=== PATIENT | female | born 1985 | race Caucasian/White ===

== ENCOUNTER → 2020-04-23 | Outpatient (CLI) | payer OTHER ==
[2016-08-14 16:30] VITALS: BP 131/82
[~2020-04-23] MED LIST: HYDR-2678 PO; IBUP-1060 PO
--- NOTE | 2020-04-23 16:33 | RAD ---
EXAM: Pelvic sonogram. HISTORY: Excessive menstruation. TECHNIQUE: Sonographic imaging of the pelvis was performed. COMPARISON: None. FINDINGS: The uterus measures 8.5 x 6.2 x 2.9 cm. There is a bicornuate uterine configuration. The endometrial stripe measures 4.3 mm in maximum thickness. The ovaries are normal in size and demonstrate normal blood flow. There is no pelvic free fluid. IMPRESSION: Bicornuate uterus. Otherwise, unremarkable pelvic sonogram. Electronically signed by: Jacinta Spencer MD (04/23/2020 4:30 PM) [id number]
== END | disposition home or self-care (01) ==
LOC: US 14:18
PROVIDERS: ATTEND Obstetrics & Gynecology
DX: N92.0 Excessive and frequent menstruation with regular cycle (principal)
CPT/HCPCS: 76856

== ENCOUNTER → 2020-06-14 | Outpatient (CLI) | payer OTHER ==
[2016-08-14 16:30] VITALS: BP 131/82
[~2020-06-14] MED LIST changes: +DOCU-109 PO; +GABA300C18 PO; +PROM25TA10 PO
== END | disposition home or self-care (01) ==
LOC: LAB 14:34
PROVIDERS: ATTEND Obstetrics & Gynecology
DX: Z01.818 Encounter for other preprocedural examination (principal); Z11.59 Encounter for screening for other viral diseases
CPT/HCPCS: U0003-CS

== ENCOUNTER 2020-06-17 06:13 | Observation (INO) | payer OTHER ==
[2020-06-17] VITALS (8 sets, daily range): BP systolic 107–118; BP diastolic 67–81
[~2020-06-17] VITALS: Ht 170.2 cm; Wt 66.2 kg
[~2020-06-17 06:13] MED LIST changes: -DOCU-109 PO; -GABA300C18 PO; -PROM25TA10 PO; +ceFAZolin SODIUM IV Push 1 GM VIAL. IVP PRN
[2020-06-17] MEDS ORDERED: ONDANSETRON PF 4 MG/2 ML VIAL. ONE (06:43)
[2020-06-17] MEDS ORDERED: PROPOFOL 10 MG/ML (20ML) VIAL. IV ONE (06:43)
[2020-06-17] MEDS ORDERED: LIDOCAINE 2% PF 5 ML VIAL. ONE (06:43)
[2020-06-17] MEDS ORDERED: DEXAMETHASONE SOD PHOS 4 MG/ML VIAL ONE (06:43)
[2020-06-17] MEDS ORDERED: fentaNYL PF VIAL 100 MCG/2 ML VIAL ONE ×2 (06:44→11:02)
[2020-06-17] MEDS ORDERED: MIDAZOLAM HCL/PF 2 MG/2 ML VIAL. ONE (06:44)
[2020-06-17] MEDS ORDERED: ROCURONIUM 50 MG/5 ML VIAL. ONE ×2 (06:44→09:37)
[2020-06-17] MEDS: IV RINGERS,LACTATED 1000ML 1,000 ML IV SCH ×2 (06:49→10:21)
[2020-06-17] MEDS ORDERED: fentaNYL PF VIAL 100 MCG/2 ML VIAL IV PRN (07:00)
[2020-06-17] MEDS ORDERED: HYDROmorphone 2 MG/ML VIAL IV PRN (07:00)
[2020-06-17] MEDS ORDERED: ONDANSETRON PF 4 MG/2 ML VIAL. IV PRN ×2 (07:00→10:15)
[2020-06-17 07:11] LABS: BASO % 1 % (0-3); EOS # 0.1 x10^3/uL (0.0-0.7); EOS % 1 % (0-3); HEMATOCRIT 39.2 % (36.0-47.0); HEMOGLOBIN 13.5 g/dL (12.0-15.5); LYMPH # 1.8 x10^3/uL (1.0-4.8); LYMPH % 35 % (24-48); MEAN CORPUSCULAR HEMOGLOBIN 32 pg (25-35); MEAN CORPUSCULAR HGB CONC 35 g/dL (31-37); MEAN CORPUSCULAR VOLUME 93 fL (79-100); MONO # 0.4 x10^3/uL (0.0-1.1); MONO % 7 % (0-9); NEUT # 2.9 x10^3/uL (1.8-7.7); NEUT % 56 % (31-73); PLATELET COUNT 210 x10^3/uL (140-400); RED BLOOD COUNT 4.21 x10^6/uL (3.50-5.40); RED CELL DISTRIBUTION WIDTH 12.5 % (11.5-14.5); WHITE BLOOD COUNT 5.2 x10^3/uL (4.0-11.0)
[2020-06-17] MEDS ORDERED: ESTROGENS, CONJ VAGINAL CREAM 30GM TUBE. ONE (07:11)
[2020-06-17] MEDS ORDERED: BUPIVACAINE-EPI 0.25%-1:200000 MPF 30 ML VIAL. ONE (07:11)
[2020-06-17] MEDS ORDERED: LIDOCAINE 1%/EPI 1:100,000 20 ML VIAL. ONE (07:11)
[2020-06-17] MEDS ORDERED: INDIGOTINDISULFONATE SODIUM 40 MG/5 ML AMPUL. ONE (07:11)
[2020-06-17] MEDS ORDERED: SURGICEL HEMOSTAT 4X8 EACH. ONE (07:11)
[2020-06-17] MEDS ORDERED: NEOSTIGMINE METHYLSULFATE 5 MG/5 ML SYRINGE. ONE (09:04)
[2020-06-17] MEDS ORDERED: GLYCOPYRROLATE 1 MG/5 ML VIAL. ONE (09:04)
--- NOTE | 2020-06-17 10:09 | PDOC ---
BRIEF OPERATIVE NOTE Date: Jun 17, 2020 Pre-Op Diagnosis 1. Menorrhagia 2. Dysmenorrhea 3. Uterine Anomaly Post-Op Diagnosis Same + Vaginal Septum ( vertical) Procedure Performed 1. LAVH 2. Partial Vaginectomy Surgeon Dr. Patton Cover Assembler Surgery Scheduling Coordinator: Anil Anesthesia Type: General Blood Loss 75 ml Specimens Obtained freddy. fallopian tubes, uterus bicornuate and both cervi Findings nml fallopian tubes and ovaries freddy., bicornuate uterus, double cervix with vaginal septum (vertical) Complications none Operative Note see dictation MALICK PATTON Jr, MD Jun 17, 2020 10:09
[2020-06-17] MEDS ORDERED: diphenhydrAMINE 50 MG/ML VIAL IV PRN (10:15)
[2020-06-17] MEDS ORDERED: PROCHLORPERAZINE 10 MG/2 ML VIAL. IV PRN (10:15)
[2020-06-17] MEDS ORDERED: SIMETHICONE 80 MG TAB.CHEW PO PRN (10:15)
[2020-06-17] MEDS ORDERED: CALCIUM CARBONATE 500 MG TAB.CHEW PO PRN (10:15)
[2020-06-17] MEDS ORDERED: ZOLPIDEM 5 MG TABLET. PO PRN (10:15)
[2020-06-17] MEDS ORDERED: diphenhydrAMINE HCL 25 MG CAPSULE PO PRN (10:15)
[2020-06-17] MEDS ORDERED: DEXTROSE 50% 25 GM / 50ML DISP.SYRIN. IV PRN (10:15)
[2020-06-17] MEDS ORDERED: KETOROLAC 30 MG/ML VIAL. IV PRN (10:15)
[2020-06-17] MEDS ORDERED: 0.9 % SODIUM CHLORIDE 10 ML DISP.SYRIN. IV PRN (10:15)
[2020-06-17] MEDS ORDERED: PROCHLORPERAZINE 10 MG/2 ML VIAL. ONE (10:29)
[2020-06-17] MEDS ORDERED: MORPHINE SULFATE 2 MG/ML VIAL. ONE (10:30)
[2020-06-17] MEDS: PROCHLORPERAZINE 10 MG/2 ML VIAL. IV PRN ×2 (10:42→15:01)
[2020-06-17] MEDS: MORPHINE SULFATE 2 MG/ML VIAL. IV PRN ×2 (10:43→10:54)
[2020-06-17] MEDS: fentaNYL PF VIAL 100 MCG/2 ML VIAL IV PRN ×2 (11:06→11:36)
--- NOTE | 2020-06-17 11:09 | OP ---
DATE OF SURGERY: 06/17/2020 PREOPERATIVE DIAGNOSES: 1. Menorrhagia. 2. Dysmenorrhea. 3. Uterine anomaly. POSTOPERATIVE DIAGNOSES: 1. Menorrhagia. 2. Dysmenorrhea. 3. Uterine anomaly. 4. Vaginal septum vertical. PROCEDURE: 1. LAVH. 2. Partial vaginectomy. SURGEON: Malick Patton MD HAT BRIM CURLER: Flako. ANESTHESIA: GETA. ESTIMATED BLOOD LOSS: 75 mL. COMPLICATIONS: None. FINDINGS: Normal fallopian tubes and ovaries bilaterally, bicornuate uterus, double cervix with vaginal septum vertical direction. SUMMARY: A 34-year-old female with long history of menorrhagia, dysmenorrhea as well as have a uterine anomaly in which medical treatment was ineffective requiring hysterectomy. The patient was counseled on risks, benefits and expectations of LAVH and voiced clear understanding to proceed. DESCRIPTION OF PROCEDURE: The patient was taken to surgery suite and placed in dorsal lithotomy position. She was prepped with Betadine solution and draped in sterile fashion. Abdominal prep was ChloraPrep. After adequate anesthesia and prep and draping, weighted speculum and curved Randy placed vaginally. Anterior lip of the one cervix was grasped with single tooth tenaculum. Valtchev uterine manipulator was then placed. Weighted speculum and curved Saint James were removed. Attention was now placed on abdomen. Small transverse skin incision was made with the scalpel just below the umbilicus. Veress needle was then placed through the infraumbilical incision site. The abdomen was allowed to insufflate up to 1-1/2 liters CO2 gas. The Veress needle was then removed, 5 mm trocar was placed. Scope was positioned. Uterus was visualized, mildly enlarged, which demonstrated 3 round ligaments. There were two fallopian tubes and two ovaries. There were a few adhesions in the lower uterine segment as well. Two additional incisions made in the left lower quadrant with a scalpel in which 5 mm trocars were placed. With aid of EnSeal device, the accessory round ligament that was coming off of the more fundal portion of the uterus was fulgurated and dissected from the abdominal wall. The right round ligament was then coagulated and dissected. The right fallopian tube was coagulated and dissected away from the pelvic sidewall. The right utero-ovarian pedicle was coagulated and dissected down to the adhesions in the lower uterine segment, which were dissected meticulously with blunt dissection and the EnSeal device. Partial bladder flap was created. The left round ligament was coagulated and dissected. The left fallopian tube was coagulated and dissected away from the left pelvic sidewall and a portion of that specimen was removed through the trocar. The left broad ligament was coagulated and dissected down to and including the left uterine artery. We further dissected the bladder off of the lower uterine segment as well as the adhesions using blunt dissection and sharp dissection with the EnSeal device. Suction irrigation was utilized to verify good hemostasis. The right uterine artery was coagulated and cut using the EnSeal device. We then proceeded vaginally. Weighted speculum and curved Saint James placed vaginally. Single tooth tenaculum and the Valtchev manipulator were removed. Russell clamps were placed on the larger of the 2 cervices. There was a vaginal septum that was vertically extended at the 3/4 of the length of the vaginal vault. This was clamped near the anterior vaginal wall and posterior vaginal wall curved Anam clamps and the vaginal septum was excised using curved Marquez scissors. A 2-0 Vicryl was placed on the remaining pedicles. Both cervices were visualized and clamped with Russell clamps. 1% lidocaine with epinephrine was injected around both cervices. Cautery was utilized to circumscribe the cervices. The vaginal mucosa was dissected away from the lower uterine segment using moist Ray-Rik. The parametrial tissue was clamped bilaterally with curved Anam clamps, cut and suture ligated with 2-0 Vicryl suture. The anterior and posterior cul-de-sac was entered with sharp dissection using curved Marquez scissors. Long weighted speculum was placed. The uterosacral ligaments were clamped bilaterally, cut, and suture ligated. The cardinal ligaments were then clamped bilaterally, cut, and suture ligated. Entered anterior cul-de-sac with blunt dissection. There was one additional pedicle was clamped, cut, tied with free tie of 2-0 Vicryl suture. Both cervices and the bicornuate uterus was removed along with the right fallopian tube. A modified Thakur's culdoplasty was performed incorporating the uterosacral ligaments bilaterally. Remainder of the vaginal cuff was reapproximated using 2-0 Vicryl suture in [id number] manner. Moist vaginal packing was placed. Attention was once again placed on abdomen. The scope was positioned. The abdomen was allowed to insufflate up to 1-1/2 liters CO2 gas. The pedicles were visualized and appeared all hemostatic and verified with suction irrigation. Both ovaries appeared normal. Small amount of normal saline was left in posterior cul-de-sac. The trocars were then removed under direct visualization. Abdomen was allowed to deflate as much as possible along with mechanical manipulation. The three skin incisions were reapproximated using 4-0 Vicryl suture in subcuticular manner. A 0.25% Marcaine with epinephrine was injected at each incision site. The patient tolerated the procedure well and was taken to recovery room in stable condition. Sponge and needle count correct x 3. MALICK PATTON MD DR: BUFFY/susanna JOB#: [id number] / [id number]
[2020-06-17] MEDS ORDERED: OPIUM/BELLADONNA 30/16.2MG SUPP.RECT. PR PRN (12:45)
[2020-06-17] MEDS: GABAPENTIN 300 MG CAPSULE. PO SCH ×2 (14:00→22:00)
[2020-06-17] MEDS: oxyCODONE/APAP 5/325 1 TAB TABLET PO PRN ×2 (14:58→20:38)
--- NOTE | 2020-06-17 17:00 | NUR ---
vag packing removed per Dr Patton verbal order pt removed IV accidently
[2020-06-17] MEDS ORDERED: ONDANSETRON ODT 4 MG TAB.RAPDIS. PO PRN (20:00)
--- NOTE | 2020-06-18 02:03 | NUR ---
Pt called out to RN stating she wanted pain meds. Pt is in bed vomiting. RN educated pt about PO meds and about starting IV. 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 Pt stated she will keep IV and not remove it.
[2020-06-18 06:43] LABS: BASO % 0 % (0-3); EOS % 0 % (0-3); HEMATOCRIT 27.5 % (36.0-47.0); HEMOGLOBIN 9.3 g/dL (12.0-15.5); LYMPH # 0.9 x10^3/uL (1.0-4.8); LYMPH % 6 % (24-48); MEAN CORPUSCULAR HEMOGLOBIN 31 pg (25-35); MEAN CORPUSCULAR HGB CONC 34 g/dL (31-37); MEAN CORPUSCULAR VOLUME 93 fL (79-100); MONO # 0.9 x10^3/uL (0.0-1.1); MONO % 6 % (0-9); NEUT # 12.6 x10^3/uL (1.8-7.7); NEUT % 88 % (31-73); PLATELET COUNT 208 x10^3/uL (140-400); RED BLOOD COUNT 2.97 x10^6/uL (3.50-5.40); RED CELL DISTRIBUTION WIDTH 12.5 % (11.5-14.5); WHITE BLOOD COUNT 14.4 x10^3/uL (4.0-11.0)
[2020-06-18 06:48] VITALS: BP 116/60
[2020-06-18] MEDS: GABAPENTIN 300 MG CAPSULE. PO SCH ×2 (08:30→14:00)
[2020-06-18 10:20] VITALS: BP 114/62
[2020-06-18] MEDS: oxyCODONE/APAP 5/325 1 TAB TABLET PO PRN (10:38)
[2020-06-18 10:57] LABS: % BANDS 3 % (0-9); % LYMPHS 6 % (24-48); % MONOS 4 % (0-10); % SEGS 87 % (35-66); PLT ESTIMATE ADEQUATE (ADEQUATE)
--- NOTE | 2020-06-18 13:40 | PDOC ---
SURGICAL PROGRESS NOTE DATE: 06/18/20 TIME: 13:39 Subjective Pt. feeling better and starting to tolerate soft foods. Pain controlled. Vital Signs Vital Signs Date Time Temp Pulse Resp B/P (MAP) Pulse Ox O2 Delivery O2 Flow Rate FiO2 06/18/20 06:48 98.5 60 18 116/60 (78) 99 Room Air 98.5 06/17/20 11:40 2.0 I&O Intake and Output 06/18/20 07:00 Intake Total 1650 ml Output Total 1525 ml Balance 125 ml Intake Oral 450 ml IV Total 1200 ml Output Urine Total 1375 ml Estimated Blood Loss 150 ml PATIENT HAS A ARGUETA: No General: Alert, Oriented X3, Cooperative HEENT: Atraumatic Lungs: Clear to auscultation Heart: Regular rate Abdomen: Normal bowel sounds, Soft, No tenderness, No masses Psych/Mental Status: Mental status NL Labs Laboratory Tests Test 06/17/20 06:36 06/17/20 06:40 06/18/20 05:53 White Blood Count 5.2 x10^3/uL (4.0-11.0) 14.4 x10^3/uL (4.0-11.0) Red Blood Count 4.21 x10^6/uL (3.50-5.40) 2.97 x10^6/uL (3.50-5.40) Hemoglobin 13.5 g/dL (12.0-15.5) 9.3 g/dL (12.0-15.5) Hematocrit 39.2 % (36.0-47.0) 27.5 % (36.0-47.0) Mean Corpuscular Volume 93 fL (79-100) 93 fL (79-100) Mean Corpuscular Hemoglobin 32 pg (25-35) 31 pg (25-35) Mean Corpuscular Hemoglobin Concent 35 g/dL (31-37) 34 g/dL (31-37) Red Cell Distribution Width 12.5 % (11.5-14.5) 12.5 % (11.5-14.5) Platelet Count 210 x10^3/uL (140-400) 208 x10^3/uL (140-400) Neutrophils (%) (Auto) 56 % (31-73) 88 % (31-73) Lymphocytes (%) (Auto) 35 % (24-48) 6 % (24-48) Monocytes (%) (Auto) 7 % (0-9) 6 % (0-9) Eosinophils (%) (Auto) 1 % (0-3) 0 % (0-3) Basophils (%) (Auto) 1 % (0-3) 0 % (0-3) Neutrophils # (Auto) 2.9 x10^3/uL (1.8-7.7) 12.6 x10^3/uL (1.8-7.7) Lymphocytes # (Auto) 1.8 x10^3/uL (1.0-4.8) 0.9 x10^3/uL (1.0-4.8) Monocytes # (Auto) 0.4 x10^3/uL (0.0-1.1) 0.9 x10^3/uL (0.0-1.1) Eosinophils # (Auto) 0.1 x10^3/uL (0.0-0.7) 0.0 x10^3/uL (0.0-0.7) Basophils # (Auto) 0.0 x10^3/uL (0.0-0.2) 0.0 x10^3/uL (0.0-0.2) Bedside Urine HCG, Qualitative Hcg negative (Negative) Segmented Neutrophils % 87 % (35-66) Band Neutrophils % 3 % (0-9) Lymphocytes % 6 % (24-48) Monocytes % 4 % (0-10) Platelet Estimate Adequate (ADEQUATE) Laboratory Tests Test 06/18/20 05:53 White Blood Count 14.4 x10^3/uL (4.0-11.0) Red Blood Count 2.97 x10^6/uL (3.50-5.40) Hemoglobin 9.3 g/dL (12.0-15.5) Hematocrit 27.5 % (36.0-47.0) Mean Corpuscular Volume 93 fL (79-100) Mean Corpuscular Hemoglobin 31 pg (25-35) Mean Corpuscular Hemoglobin Concent 34 g/dL (31-37) Red Cell Distribution Width 12.5 % (11.5-14.5) Platelet Count 208 x10^3/uL (140-400) Neutrophils (%) (Auto) 88 % (31-73) Lymphocytes (%) (Auto) 6 % (24-48) Monocytes (%) (Auto) 6 % (0-9) Eosinophils (%) (Auto) 0 % (0-3) Basophils (%) (Auto) 0 % (0-3) Neutrophils # (Auto) 12.6 x10^3/uL (1.8-7.7) Lymphocytes # (Auto) 0.9 x10^3/uL (1.0-4.8) Monocytes # (Auto) 0.9 x10^3/uL (0.0-1.1) Eosinophils # (Auto) 0.0 x10^3/uL (0.0-0.7) Basophils # (Auto) 0.0 x10^3/uL (0.0-0.2) Segmented Neutrophils % 87 % (35-66) Band Neutrophils % 3 % (0-9) Lymphocytes % 6 % (24-48) Monocytes % 4 % (0-10) Platelet Estimate Adequate (ADEQUATE) Assessment/Plan A: POD#1 s/p LAVH P: D/c home. Justicifation of Admission Dx: Justifications for Admission: Justification of Admission Dx: Yes MALICK GUZMÁN Jr, MD Jun 18, 2020 13:40
[2020-06-18] MEDS ORDERED: PROM25TA10 PO (13:44)
[2020-06-18] MEDS ORDERED: GABA300C18 PO (13:44)
[2020-06-18] MEDS ORDERED: IBUP-1060 PO (13:44)
[2020-06-18] MEDS ORDERED: DOCU-109 PO (13:44)
--- NOTE | 2020-06-18 13:45 | DISCH ---
DISCHARGE INSTRUCTIONS Condition on Discharge Condition on Discharge: Stable Activity After Discharge Activity Instructions for Disc: Activity as tolerated Lifting Instructions after Dis: No heavy lifting Exercise Instruction after Dis: Walk 15 min, 3 x per day Driving Instructions after Dis: No driving for 2 weeks Weight Bearing Status after Di: No restrictions Diet after Discharge Diet after Discharge: Regular Checks after Discharge Checks after discharge: Weigh Yourself Daily Contacting the [facility] after DC Call your doctor for: If your condition worsens Follow-Up Follow up with: Dr. Patton in 2 weeks. Treatment/Equipment after DC Adaptive Equipment Issued: None MALICK PATTON Jr, MD Jun 18, 2020 13:45
--- NOTE | 2020-06-18 15:08 | PATHOLOGY ---
[facility] Accession Number: [id number] . 01 Material submitted: . uterus - CERVIX,UTERUS,BILATERAL FALLOPIAN TUBES . 01 Clinical history: . Abnormal uterine bleeding; menorrhagia; dysmenorrhea . 02 Diagnosis: Uterus with attached right fallopian tube and detached left fallopian tube, laparoscopic assisted vaginal hysterectomy with bilateral salpingectomy: - Uterus didelphys with double cervix. - Mild chronic cervicitis with squamous metaplasia, focal, involving each uterine cervix. - Proliferative endometrium. - Congestion of bilateral fallopian tubes. LBQ 06/18/2020 1215 Local . 02 Comment: There is no atypia or evidence of malignancy. (JPM/db; 06/18/2020) . 02 Electronically signed: . Leonardo Pina MD, Pathologist NPI- [id number] . 01 Gross description: . The specimen is received in formalin labeled " Dixie Stout, cervix, uterus, bilateral fallopian tubes". Received is a 99 g, 8.7 x 5.3 x 3.6 cm uterus, attached right fallopian tube weighing 3 g, and detached left fallopian tube weighing 2 g. The uterine serosa is pink-pepper and smooth to slightly disrupted in appearance. There are two individual cervices, the right of which measures 3.3 x 3.0 cm, and the left measures 3.0 x 2.7 cm. The cervical os of the right cervix measures 1.3 cm and is surrounded by pink-pepper, smooth ectocervical mucosa. The cervical os of the left cervix measures 0.5 cm and is surrounded by pink-pepper, smooth ectocervical mucosa. The uterus is oriented using the peritoneal reflection and the anterior paracervical margin is inked black. The specimen is opened laterally to reveal two endocervical canals divided by a septum. The left canal is pink-pepper and slightly corrugated in appearance measuring 3.3 cm in length. The right canal is pink-pepper and glistening to shaggy in appearance measuring 2.9 cm in length. The endometrial cavity is Y-shaped measuring 3.3 cm in length by 2.7 cm in width with a slight septum identified only on the anterior aspect. The endometrium is pale pepper, glistening in appearance and measures 0.1 cm in thickness. Serial sectioning reveals a pepper-pink, trabeculated myometrium measuring up to 2.1 cm in thickness with no grossly distinct nodules or lesions. . The detached left fimbriated fallopian tube measures 2.7 cm in length by 0.5 cm in diameter. The serosal surface is inked black. Sectioning reveals a patent lumen. . The attached right fimbriated fallopian tube measures 4.1 cm in length by up to 0.8 cm in diameter. Sectioning reveals a pinpoint to patent lumen. The specimen is submitted representatively as follows: . A1 left 12:00 cervix A2 left 6:00 cervix A3 right 12:00 cervix A4 right 6:00 cervix A5 compliance representative dealer section of posterior lower uterine segment to show septum between endocervical canals A6 anterior endomyometrium to show slight septum A7 posterior endomyometrium A8 left and right fallopian tubes. (CAA; 06/17/2020) QA/QA 06/18/2020 1211 Local . 02 Pathologist provided ICD-10: N72, N87.9, N93.9, N92.0, N94.6 . 02 CPT . 537525 Specimen Comment: A courtesy copy of this report has been sent to [phone] Specimen Comment: Report sent to Performed at: 01 [facility] [address], [place] [id number] MD Herber Lizama MD Phone: [phone] Performed at: 02 [facility] [address], [place] [id number] MD Leonardo Pina MD Phone: [phone]
[2020-06-18 16:12] VITALS: BP 114/64
== END 2020-06-18 17:00 | disposition home or self-care (01) ==
LOC: SURG 06:13 → 3 NORTH 10:30
PROVIDERS: ADMIT Obstetrics & Gynecology; ATTEND Obstetrics & Gynecology
DX: N92.0 Excessive and frequent menstruation with regular cycle (principal); N94.6 Dysmenorrhea, unspecified; Q52.129 Other and unspecified longitudinal vaginal septum; Q51.3 Bicornate uterus
CPT/HCPCS: 36415; 58552; 81025; 85007; 85025; 86850; 86900; 86901; 96374; 96375; 96376; A7015; G0378; G0379; J0690; J0780; J1100; J1885; J2250; J2270; J2405; J2704; J2710; J3010; J3490; J7030; J7120